=== PATIENT | female | born 1960 | race Caucasian/White ===

== ENCOUNTER 2016-07-23 09:19 | Emergency (ER) | payer BC, OTHER ==
[2016-07-23 09:37] VITALS: BMI 25.7
--- NOTE | 2016-07-23 09:39 | PDOC ---
History of Present Illness - General History Source: Patient Exam Limitations: No Limitations <Karolina Kearney - Last Filed: 07/23/16 11:42> - History of Present Illness Initial Comments: 07/23/16 10:10 The patient is a 56 year old female with a past medical hx of hyperlipidemia, vertigo, and frequent headaches who presents to the ED complaining of a headache for five days. The patient states she was hit on the right side of her face by a basketball 5 days ago. She describes the headache as constant, located on the top of her head, and a 5/10 in severity. The patient reports she has two episodes of shooting pains in her head per day. She reports associated nausea, dizziness, and lightheadedness but denies any vomiting. She states she has been taking Motrin with no relief of pain. The patient notes has a headache at her baseline, but this is much worse. The patient reports blurriness to her right eye, mild neck pain The patient denies paresthesias, weakness The patient denies chest pain, SOB Allergies: NKDA Social: No toxic habits reported Surgical: Hip surgery PCP: Dr. Mckinney <Shoshana Montanez - Last Filed: 07/23/16 11:53> - General Chief Complaint: Lightheaded Stated Complaint: HEADACHE, LIGHTHEADED Time Seen by Provider: 07/23/16 09:39 Past History - Past Medical History Hypercholesterolemia: Yes Other medical history: PIAGETS DISEASE, GLAUCOME - Psycho/Social/Smoking Cessation Hx Anxiety: No Suicidal Ideation: No Smoking Status: No Smoking History: Never smoked Number of Cigarettes Smoked Daily: 0 Hx Alcohol Use: No <Karolina Kearney - Last Filed: 07/23/16 11:42> <Shoshana Montanez - Last Filed: 07/23/16 11:53> - Past Medical History Allergies/Adverse Reactions: Allergies Allergy/AdvReac Type Severity Reaction Status Date / Time No Known Allergies Allergy Verified 07/23/16 09:32 Home Medications: Ambulatory Orders Olopatadine HCl [Patanase] 30.5 gm NS DAILY 05/04/12 Olopatadine HCl [Patanol] 1 gtt OU DAILY 05/04/12 Timolol Maleate [Istalol] 1 gtt OU DAILY 05/04/12 Meclizine HCl [Antivert -] 25 mg PO TID PRN #21 tablet 07/23/16 Ondansetron HCl [Zofran] 4 mg PO BID PRN #12 tablet 07/23/16 Tramadol HCl/Acetaminophen [Ultracet Tablet] 1 each PO BID PRN #6 tablet MDD 2 07/23/16 Review of Systems - Review of Systems Able to Perform ROS?: Yes Comments:: 07/23/16 10:16 GENERAL/CONSTITUTIONAL: No: fever, chills, weakness, loss of appetite. HEAD, EYES, EARS, NOSE AND THROAT: +Right eye blurriness. No: ear pain, discharge, sore throat, throat swelling. CARDIOVASCULAR: No: chest pain, lightheadedness, palpitations, syncope RESPIRATORY: No: cough, shortness of breath, wheezing, hemoptysis, stridor. GASTROINTESTINAL: +Nausea. No: vomiting, abdominal cramping, diarrhea, rectal bleeding, constipation. GENITOURINARY: No: dysuria, hematuria, frequency, urgency, flank pain. MUSCULOSKELETAL: +Neck pain. No: back pain, joint pain, muscle swelling SKIN: No: lesions, pallor, rash or easy bruising. NEUROLOGIC: +Headache, lightheadedness, dizziness. No: paresthesias, weakness ENDOCRINE: No: unexplained weight gain or loss HEMATOLOGIC/LYMPHATIC: No: anemia, easy bleeding, swelling nodes <Shoshana Montanez - Last Filed: 07/23/16 11:53> *Physical Exam - Vital Signs Last Vital Signs Temp Pulse Resp BP Pulse Ox 98 F 50 L 19 132/74 97 07/23/16 09:33 07/23/16 09:33 07/23/16 09:33 07/23/16 09:33 07/23/16 09:33 <Karolina Kearney - Last Filed: 07/23/16 11:42> - Vital Signs Last Vital Signs Temp Pulse Resp BP Pulse Ox 98 F 50 L 19 132/74 97 07/23/16 09:33 07/23/16 09:33 07/23/16 09:33 07/23/16 09:33 07/23/16 09:33 - Physical Exam Comments: 07/23/16 10:17 GENERAL: The patient is in no acute distress. HEAD: Normal with no signs of trauma. EYES: PERRLA, EOMI, sclera anicteric, conjunctiva clear. ENT: Ears normal, nares patent, oropharynx clear without exudates. Moist mucous membranes. NECK: Normal range of motion, supple without lymphadenopathy, JVD, or masses. LUNGS: Breath sounds equal, clear to auscultation bilaterally. No wheezes, and no crackles. HEART:Regular rate and rhythm, normal S1 and S2 without murmur, rub or gallop. ABDOMEN: Soft, nontender, normoactive bowel sounds. No guarding, no rebound. EXTREMITIES: Normal range of motion, no edema. No clubbing or cyanosis. No erythema, or tenderness. NEUROLOGICAL: Cranial nerves II through XII grossly intact. Normal speech. No focal neurological deficits. MUSCULOSKELETAL: Back nontender to palpation, no CVA tenderness SKIN: +Superficial abrasion underneath the right eye. Warm, Dry, normal turgor, no rashes or lesions noted. <Shoshana Montanez - Last Filed: 07/23/16 11:53> ED Treatment Course - RADIOLOGY Radiograph Interpretation: 07/23/16 10:45 CT scan of the brain A noncontrast CT scan of the brain was performed. Compared to prior CT scan of the head dated 09/26/2013 There is minimal volume loss. The ventricles and basal cisterns appear unremarkable. No gross mass lesion, focal infarct or intracranial hemorrhage is seen. Visualized paranasal sinuses and mastoid air cells are well-aerated. The calvarium is intact. Impression: No acute intracranial pathology is identified. The calvarium is intact. No gross extracranial soft tissue swelling/hematoma is identified. Reported By: Brendan Ferguson MD 07/23/16 1037 - Medications Given in the ED: ED Medications Discontinued Medications Generic Name Dose Route Start Last Admin Trade Name Freq PRN Reason Stop Dose Admin Metoclopramide HCl 10 mg 07/23/16 09:52 07/23/16 10:04 Reglan - PO 07/23/16 09:53 10 mg ONCE ONE Administration Oxycodone/Acetaminophen 1 combo 07/23/16 09:52 07/23/16 10:03 Percocet 5/325 - PO 07/23/16 09:53 1 combo ONCE ONE Administration <Shoshana Montanez - Last Filed: 07/23/16 11:53> Medical Decision Making - Medical Decision Making 07/23/16 09:39 A portion of this note was documented by scribe services under my direction. I have reviewed the details of the note, within reason, and agree with the documentation with the following case summary and management plan written by me. Nursing documentation reviewed and incorporated into medical decision making 07/23/16 10:00 This is a 56 yo F who has a history of daily migraines She presents to the ER with a complaint of severe headache, dizziness, visual changes x 5 days s/p basketball injury She was with her grand children, they were throwing a basketball The basketball struck her in the right side of her face No LOC No amnesia Pt states she developed swelling and bruising beneath the right eye She did not come in right away because she was taking care of her grandchildren and she honestly thought her symptoms would go away PT states she became concerned because he pain has persisted since her injury She has a chronic temporal headache with intermittent sharp frontal pain radiating to the top of the head Has been taking motrin which has not improved his symptoms Will do CT head Will give pain meds Will re assess 07/23/16 11:[address] negative Pt feels better Still is is bit nauseous Will give Zofran 07/23/16 11:44 I discussed the physical exam findings, ancillary test results and final diagnoses with the patient. I answered all of the patient's questions. The patient was satisfied with the care received and felt comfortable with the discharge plan and treatment plan. The patient will call their primary care physician within 24 hours to arrange follow-up and will return to the Emergency Department with any new, persistent or worsening symptoms. <Karolina Kearney - Last Filed: 07/23/16 11:42> *DC/Admit/Observation/Transfer - Discharge Dispostion Admit: No <Karolina Kearney - Last Filed: 07/23/16 11:42> - Attestations Scribe Attestion: 07/23/16 10:10 Documentation prepared by Shoshana Montanez, acting as medical sales consultant for Karolina Kearney MD/DO. <Shoshana Montanez - Last Filed: 07/23/16 11:53> Diagnosis at time of Disposition: Headache, post-traumatic Qualifiers: Headache chronicity pattern: chronic headache Intractability: not intractable Qualified Code(s): G44.329 - Chronic post-traumatic headache, not intractable Concussion Qualifiers: Encounter type: initial encounter Loss of consciousness presence/duration: without LOC Qualified Code(s): S06.0X0A - Concussion without loss of consciousness, initial encounter - Discharge Dispostion Disposition: HOME Condition at time of disposition: Stable - Prescriptions Prescriptions: Meclizine HCl [Antivert -] 25 mg PO TID PRN #21 tablet PRN Reason: Vertigo Tramadol HCl/Acetaminophen [Ultracet Tablet] 1 each PO BID PRN #6 tablet MDD 2 PRN Reason: severe headache Ondansetron HCl [Zofran] 4 mg PO BID PRN #12 tablet PRN Reason: Nausea - Referrals Referrals: Joyce Mckinney [Staff Physician] - - Patient Instructions Printed Discharge Instructions: DI for Concussion, DI for Post-traumatic Headache Additional Instructions: Shelly cox for coming in to the ER today Please take medications as needed for headache You might continue to have these symptoms for up to an additional week! Please avoid any additional head trauma Return to the ER for any other concerns or complaints
[2016-07-23] MEDS ORDERED: OXYCODONE/APAP 5/325MG COMBO TABLET PO ONE (09:52)
[2016-07-23] MEDS ORDERED: METOCLOPRAMIDE HCL 10 MG TABLET (FP) PO ONE ×2 (09:52→09:58)
[2016-07-23] MEDS ORDERED: OXYCODONE/APAP 5/325MG COMBO TABLET ONE (09:58)
[2016-07-23 11:32] VITALS: BP 137/88; PULSE 52; TEMP 98.7
[2016-07-23] MEDS ORDERED: ONDANSETRON 4 MG TABLET PO ONE (11:43)
[2016-07-23] MEDS ORDERED: ONDANSETRON *ODT* 4 MG TABLET ONE (11:50)
== END 2016-07-23 11:53 | disposition home or self-care (01) ==
LOC: JER 09:19
DX: S06.0X0A Concussion without loss of consciousness, initial encounter (principal); G44.329 Chronic post-traumatic headache, not intractable; W21.05XA Struck by basketball, initial encounter; Y93.89 Activity, other specified; Y92.89 Other specified places as the place of occurrence of the external cause; Y99.8 Other external cause status
CPT/HCPCS: 70450-TC; 99282-25

== ENCOUNTER 2018-04-03 08:24 | Day surgery (SDC) | payer BC, OTHER ==
[2018-04-03 07:49] VITALS: BMI 30.4
[2018-04-03 09:26] VITALS: TEMP 98.1
[2018-04-03 15:06] VITALS: BP 114/52; PULSE 63
== END 2018-04-03 10:30 | disposition home or self-care (01) ==
LOC: JASU-ENDO 08:24
PROVIDERS: ATTEND Internal Medicine Gastroenterology
PROC: 0DJD8ZZ Inspection of Lower Intestinal Tract, Via Natural or Artificial Opening Endoscopic (ICD-10-PCS; principal; 2018-04-03 09:00)
DX: Z12.11 Encounter for screening for malignant neoplasm of colon (principal)

== ENCOUNTER 2018-05-16 11:36 | Emergency (ER) | payer BC, OTHER ==
[2018-05-16 11:56] VITALS: BP 151/75; PULSE 58; TEMP 97.9; BMI 28.0
--- NOTE | 2018-05-16 12:47 | PDOC ---
History of Present Illness - General Chief Complaint: Injury Stated Complaint: INJURY Time Seen by Provider: 05/16/18 12:18 - History of Present Illness Initial Comments: 05/16/18 12:44 58-year-old female with a past medical history significant for Paget's disease presents for evaluation right wrist and thumb pain after a mechanical fall before her presentation the emergency room. She did not hit her head no post injury nausea vomiting or visual changes her complaint is right wrist pain. She points to the radial aspect of her right wrist and thumb as the area of her discomfort 05/16/18 12:47 Past History - Past Medical History Allergies/Adverse Reactions: Allergies Allergy/AdvReac Type Severity Reaction Status Date / Time No Known Allergies Allergy Verified 05/16/18 11:50 Home Medications: Ambulatory Orders Timolol Maleate [Istalol] 1 gtt OU DAILY 05/04/12 Cholecalciferol (Vitamin D3) [Vitamin D3] 2,000 unit PO BID 04/03/18 Anemia: Yes COPD: No Hypercholesterolemia: Yes - Surgical History Orthopedic Surgery: Yes (LEFT HIP REPAIR) - Suicide/Smoking/Psychosocial Hx Smoking Status: No Smoking History: Never smoked Have you smoked in the past 12 months: No Number of Cigarettes Smoked Daily: 0 Information on smoking cessation initiated: No Hx Alcohol Use: No Drug/Substance Use Hx: No Review of Systems - Review of Systems Musculoskeletal: Yes: See HPI, Joint Pain *Physical Exam - Vital Signs Last Vital Signs Temp Pulse Resp BP Pulse Ox 97.9 F 58 L 16 151/75 98 05/16/18 11:49 05/16/18 11:49 05/16/18 11:49 05/16/18 11:49 05/16/18 11:49 - Physical Exam Comments: 05/16/18 12:45 Right wrist hand and thumb skin color and temperature are normal range of motion is full in the right wrist and nonpainful full range of motion in the thumb. Tenderness over the first metacarpal no tenderness over the area of the ulnar collateral ligament distal radius radial styloid ulna styloid or scaphoid. There are no gross sensorimotor deficits. She is neurovascularly intact. Moderate Sedation - Procedure Monitoring Vital Signs: Procedure Monitoring Vital Signs Temperature 97.9 F 05/16/18 11:49 Pulse Rate 58 L 05/16/18 11:49 Respiratory Rate 16 05/16/18 11:49 Blood Pressure 151/75 05/16/18 11:49 O2 Sat by Pulse Oximetry (%) 98 05/16/18 11:49 ED Treatment Course - RADIOLOGY Radiology Studies Ordered: Category Date Time Status WRIST W/HAND-RIGHT* [RAD] Stat Radiology 05/16/18 12:21 Taken Medical Decision Making - Medical Decision Making 05/16/18 12:45 No evidence of fracture trauma or destructive process on right hand and wrist x- rays today. *DC/Admit/Observation/Transfer Diagnosis at time of Disposition: Contusion, hand - Discharge Dispostion Disposition: HOME Condition at time of disposition: Stable Decision to Admit order: No - Referrals Referrals: Claudio Mckinney MD [Primary Care Provider] - Axel Bashir MD [Staff Physician] - - Patient Instructions Printed Discharge Instructions: Contusion Additional Instructions: Return to the emergency room should symptoms worsen or go unresolved. Follow-up with hand surgery in 2-3 days for further evaluation and treatment options. He may take Tylenol Motrin as directed for pain. He may use her hand as tolerated. Ice for 15 minutes 4-5 times a day for swelling if she needed to. - Post Discharge Activity
== END 2018-05-16 12:49 | disposition home or self-care (01) ==
LOC: JERFT 11:36
DX: S60.221A Contusion of right hand, initial encounter (principal); W18.39XA Other fall on same level, initial encounter; Y93.89 Activity, other specified; Y92.89 Other specified places as the place of occurrence of the external cause; Y99.8 Other external cause status
CPT/HCPCS: 73110-TC-RT-FY; 73130-TC-RT-FY; 99281-25

== ENCOUNTER 2018-10-02 07:24 | Day surgery (SDC) | payer BC, OTHER | END 2018-10-02 09:20 | disposition home or self-care (01) | LOC: JASU-ENDO 07:24 | DX: K21.9 Gastro-esophageal reflux disease without esophagitis (principal) ==

== ENCOUNTER 2022-01-31 05:27 | Day surgery (SDC) | payer BC, OTHER ==
[2022-01-27 10:25] VITALS: BMI 27.8
[2022-01-31] MEDS ORDERED: MIDAZOLAM HCL 2 MG/2 ML SINGLE DOSE VIAL ONE (15:07)
[2022-01-31] MEDS ORDERED: PROPOFOL 20 ML ONE (15:07)
[2022-01-31] MEDS ORDERED: SODIUM CHLORIDE 0.9% P/F 10 ML VIAL IJ ONE (15:08)
[2022-01-31] MEDS ORDERED: ONDANSETRON 4 MG/2 ML VIAL IVPUSH PRN (15:11)
[2022-01-31] MEDS ORDERED: oxyCODONE HCL 5 MG TABLET PO PRN (15:11)
[2022-01-31] MEDS ORDERED: PROMETHAZINE HCL 25 MG/1 ML VIAL IVPUSH PRN (15:11)
[2022-01-31] MEDS ORDERED: LACTATED RINGERS SOLUTION 1,000 ML IV SCH (15:15)
[2022-01-31] MEDS ORDERED: ceFAZolin SODIUM 1 GM VIAL ONE (15:40)
[2022-01-31] MEDS ORDERED: ceFAZolin SODIUM 1 GM VIAL IVPB ONE (15:42)
[2022-01-31] MEDS ORDERED: DEXAMETHASONE SOD PHOSPHATE 4 MG/1 ML VIAL ONE (15:49)
[2022-01-31] MEDS ORDERED: ONDANSETRON 4 MG/2 ML VIAL ONE (15:49)
[2022-01-31] MEDS ORDERED: KETOROLAC TROMETHAMINE 30 MG/1 ML VIAL ONE (15:55)
[2022-01-31 18:34] VITALS: RESP 18
[2022-01-31 19:28] VITALS: BP 137/68; PULSE 56; TEMP 97.8
== END 2022-01-31 19:05 | disposition home or self-care (01) ==
LOC: JASU-SURG 05:27
PROVIDERS: ATTEND Obstetrics & Gynecology
PROC: 0UDB7ZX Extraction of Endometrium, Via Natural or Artificial Opening, Diagnostic (ICD-10-PCS; 2022-01-31)
PROC: 0UB98ZX Excision of Uterus, Via Natural or Artificial Opening Endoscopic, Diagnostic (ICD-10-PCS; principal; 2022-01-31 16:05)
DX: N95.0 Postmenopausal bleeding (principal); N84.0 Polyp of corpus uteri
CPT/HCPCS: 88305-TC; 94760

== ENCOUNTER 2022-08-21 13:30 | Emergency (ER) | payer BC, OTHER ==
[2022-08-21 13:34] VITALS: BP 141/76; PULSE 76; RESP 18; TEMP 98; BMI 28.0
== END 2022-08-21 14:45 | disposition home or self-care (01) ==
LOC: JER 13:30 → JERFT 13:30
DX: L24.89 Irritant contact dermatitis due to other agents (principal)
CPT/HCPCS: 99283-25